=== PATIENT | male | born 1945 | race African-American/Black ===

== ENCOUNTER 2021-06-30 16:02 | Inpatient (IN) | payer OTHER ==
[2021-06-30] MEDS ORDERED: LACTATED RINGERS SOLUTION 1000 ML INFUS.BAG IV ONE ×2 (17:00→18:05)
[2021-06-30 17:18] LABS: VENOUS BASE EXCESS 1.9 mmol/L (-2-2); VENOUS PH 7.343 (7.310-7.410)
[2021-06-30 17:21] LABS: BASO % 0.2 % (0-2.0); EOS % 0.2 % (0-4.5); HEMATOCRIT 37.5 % (35.4-49); LYMPH % 24.5 % (8-40); MCH 28.4 pg (25.7-33.7); MCHC 32.1 g/dl (32.0-35.9); MEAN CELL VOLUME 88.3 fl (80-96); MEAN PLT VOLUME 8.7 fl (7.5-11.1); MONO % 6.8 % (3.8-10.2); NEUT % 68.3 % (42.8-82.8); PLATELET COUNT 235 10^3/uL (134-434); RBC 4.24 M/mm3 (4.00-5.60); RDW 12.3 % (11.9-15.9); WHITE BLOOD COUNT 3.3 K/mm3 (4.0-10.0)
[2021-06-30 17:49] LABS: CHLORIDE 90 mmol/L (98-107); SODIUM 127 mmol/L (136-145)
[2021-06-30 17:52] LABS: CALCIUM 9.5 mg/dL (8.5-10.1)
[2021-06-30 17:53] LABS: ALBUMIN 3.7 g/dl (3.4-5.0); ANION GAP 9 MMOL/L (8-16); BLOOD UREA NITROGEN 12.2 mg/dL (7-18); CO2 28 mmol/L (21-32); MAGNESIUM 2.1 mg/dL (1.8-2.4)
[2021-06-30 17:56] LABS: CREATININE 1.4 mg/dL (0.55-1.3); PHOSPHOROUS 4.1 mg/dL (2.5-4.9); SGOT/AST 15 U/L (15-37); SGPT/ALT 26 U/L (13-61)
[2021-06-30 17:57] LABS: BILIRUBIN,TOTAL 0.6 mg/dL (0.2-1)
[2021-06-30 17:58] LABS: TOT PROT 7.8 g/dl (6.4-8.2)
[2021-06-30 17:59] LABS: ALK PHOS 186 U/L (45-117); GLUCOSE,RANDOM 799 mg/dL (74-106)
[2021-06-30] MEDS ORDERED: INSULIN REGULAR HUMAN 100 UNITS/ML *VIAL IVPUSH ONE (18:04)
[2021-06-30 18:17] LABS: EPI CELLS 5 /uL (0-25.1); HYALINE CASTS 1 /uL (0-3.1); PH,URINE 5.5 (5.0-8.0); URINE APPEARANCE CLEAR; URINE BACTERIA 5 /uL (0-1359); URINE BILIRUBIN NEGATIVE (NEGATIVE); URINE COLOR YELLOW; URINE GLUCOSE (UA) 3+ (NEGATIVE); URINE KETONE 1+ (NEGATIVE); URINE LEUK ESTERASE NEGATIVE (NEGATIVE); URINE NITRITE NEGATIVE (NEGATIVE); URINE PROTEIN 3+ (NEGATIVE); URINE RBC 52 /uL (0-23.9); URINE UROBILINOGEN 0.2 mg/dL (0.2-1.0); URINE WBC 4 /uL (0-25.8)
[2021-06-30 21:12] LABS: CHLORIDE 97 mmol/L (98-107); SODIUM 135 mmol/L (136-145)
[2021-06-30 21:13] LABS: CALCIUM 9.7 mg/dL (8.5-10.1)
[2021-06-30 21:14] LABS: ANION GAP 7 MMOL/L (8-16); BLOOD UREA NITROGEN 11.1 mg/dL (7-18); CO2 30 mmol/L (21-32)
[2021-06-30 21:17] LABS: CREATININE 1.3 mg/dL (0.55-1.3); GLUCOSE,RANDOM 472 mg/dL (74-106)
[2021-06-30] MEDS ORDERED: HEPARIN NA (PORCINE) 5,000 UNITS/ML 1ML VIAL SQ ONE (22:35)
[2021-06-30] MEDS ORDERED: INSULIN (NOVOLOG) ASPART 100 UNITS/ML 10ML VIAL SQ ONE (22:39)
[2021-06-30] MEDS ORDERED: POTASSIUM CHLORIDE 20 MEQ PREMIX IVPB 100 ML IVPB ONE (22:40)
[2021-06-30] MEDS ORDERED: HEPARIN NA (PORCINE) 5,000 UNITS/ML 1ML VIAL ONE (23:17)
[2021-06-30] MEDS ORDERED: KCL 10 MEQ IVPB 10 MEQ/100 ML INFUS.BAG IVPB ONE (23:21)
[2021-06-30] MEDS: POTASSIUM CHLORIDE 10 MEQ PREMIX IVPB (POTASSIUM RIDER) IVPB SCH (23:51)
[2021-06-30] MEDS: LACTATED RINGERS SOLUTION 1,000 ML IV SCH (23:51)
[2021-07-01] MEDS ORDERED: KCL 10 MEQ IVPB 10 MEQ/100 ML INFUS.BAG IVPB ONE (00:47)
[2021-07-01] MEDS: POTASSIUM CHLORIDE 10 MEQ PREMIX IVPB (POTASSIUM RIDER) IVPB SCH (00:56)
[2021-07-01] MEDS: LACTATED RINGERS SOLUTION 1,000 ML IV SCH (06:30)
[2021-07-01] MEDS ORDERED: FLU VACC QS2021-22(6MOS UP)/PF 60 MCG/0.5 ML SYRINGE IM ONE (09:00)
[2021-07-01] MEDS ORDERED: PNEUMOC 13-VAL CONJ-DIP CRM/PF 0.5 ML DISP.SYRIN IM ONE (09:00)
[2021-07-01 10:17] LABS: BASO % 0.3 % (0-2.0); EOS % 0.4 % (0-4.5); HEMATOCRIT 39.7 % (35.4-49); HEMOGLOBIN 12.8 GM/dL (11.7-16.9); LYMPH % 33.7 % (8-40); MCH 28.3 pg (25.7-33.7); MCHC 32.2 g/dl (32.0-35.9); MEAN CELL VOLUME 87.9 fl (80-96); MEAN PLT VOLUME 8.4 fl (7.5-11.1); MONO % 9.3 % (3.8-10.2); NEUT % 56.3 % (42.8-82.8); PLATELET COUNT 235 10^3/uL (134-434); RBC 4.51 M/mm3 (4.00-5.60); RDW 12.3 % (11.9-15.9); WHITE BLOOD COUNT 3.6 K/mm3 (4.0-10.0)
[2021-07-01 10:57] LABS: ALBUMIN 3.3 g/dl (3.4-5.0); BLOOD UREA NITROGEN 9.2 mg/dL (7-18); MAGNESIUM 1.8 mg/dL (1.8-2.4)
[2021-07-01 10:59] LABS: CREATININE 0.9 mg/dL (0.55-1.3); PHOSPHOROUS 3.5 mg/dL (2.5-4.9)
[2021-07-01 11:00] LABS: BILIRUBIN,TOTAL 0.6 mg/dL (0.2-1); TOT PROT 6.8 g/dl (6.4-8.2)
[2021-07-01] MEDS: POLYETHYLENE GLYCOL (HEALTHYLAX) 3350 17 GM PACKET PO SCH (12:23)
[2021-07-01] MEDS: INSULIN (LEVEMIR) 100 UNITS/ML UNITS SQ SCH ×2 (12:23→22:03)
[2021-07-01] MEDS: Insulin (LOG) Aspart 100 UNITS/ML VIAL SQ SCH ×2 (12:27→17:52)
[2021-07-01 16:08] VITALS: BMI 26.9
[2021-07-01] MEDS: ASPIRIN COATED 81 MG TABLET.EC PO SCH (16:27)
[2021-07-01] MEDS: amLODIPine BESYLATE 10 MG TABLET (FP) PO SCH (17:40)
[2021-07-01] MEDS: ATORVASTATIN CA 20 MG TABLET (FP) PO SCH (22:04)
[2021-07-01] MEDS: LISINOPRIL 10 MG TABLET PO SCH (22:04)
[2021-07-02] MEDS: INSULIN (LEVEMIR) 100 UNITS/ML UNITS SQ SCH ×2 (06:17→21:42)
[2021-07-02] MEDS: Insulin (LOG) Aspart 100 UNITS/ML VIAL SQ SCH ×4 (06:17→16:53)
[2021-07-02] MEDS ORDERED: INSULIN (LEVEMIR) 100 UNITS/ML UNITS SQ ONE (07:56)
[2021-07-02] MEDS ORDERED: INSULIN SLIDING SCALE (NOVOLOG) 1 VIAL SQ ONE (08:22)
[2021-07-02] MEDS: ASPIRIN COATED 81 MG TABLET.EC PO SCH (10:03)
[2021-07-02] MEDS: ENOXAPARIN NA (PORCINE) 40 MG/0.4 ML DISP.SYRIN SQ SCH (10:03)
[2021-07-02] MEDS: POLYETHYLENE GLYCOL (HEALTHYLAX) 3350 17 GM PACKET PO SCH ×2 (10:03→21:45)
[2021-07-02] MEDS: BICALUTAMIDE 50 MG TABLET (FP) PO SCH (10:03)
[2021-07-02] MEDS: TAMSULOSIN HCL 0.4 MG CAP PO SCH (10:03)
[2021-07-02] MEDS: amLODIPine BESYLATE 10 MG TABLET (FP) PO SCH (10:03)
[2021-07-02] MEDS: INSULIN SLIDING SCALE (NOVOLOG) 1 VIAL SQ SCH ×3 (11:50→21:41)
[2021-07-02 13:40] LABS: HEMATOCRIT 37.6 % (35.4-49); HEMOGLOBIN 11.7 GM/dL (11.7-16.9); MCH 27.4 pg (25.7-33.7); MCHC 31.2 g/dl (32.0-35.9); PLATELET COUNT 249 10^3/uL (134-434); RBC 4.27 M/mm3 (4.00-5.60); RDW 12.2 % (11.9-15.9)
[2021-07-02 14:05] LABS: CALCIUM 8.9 mg/dL (8.5-10.1)
[2021-07-02 14:06] LABS: BLOOD UREA NITROGEN 10.7 mg/dL (7-18); MAGNESIUM 1.9 mg/dL (1.8-2.4)
[2021-07-02 14:09] LABS: PHOSPHOROUS 3.9 mg/dL (2.5-4.9)
[2021-07-02] MEDS: SENNOSIDES 8.6MG TABLET (FP) PO SCH ×2 (14:21→21:45)
[2021-07-02] MEDS: ATORVASTATIN CA 20 MG TABLET (FP) PO SCH (21:46)
[2021-07-02] MEDS: LISINOPRIL 10 MG TABLET PO SCH (21:46)
[2021-07-03] MEDS: INSULIN SLIDING SCALE (NOVOLOG) 1 VIAL SQ SCH ×4 (06:29→21:18)
[2021-07-03] MEDS: Insulin (LOG) Aspart 100 UNITS/ML VIAL SQ SCH (06:30)
[2021-07-03] MEDS: INSULIN (LEVEMIR) 100 UNITS/ML UNITS SQ SCH (06:31)
[2021-07-03 10:49] LABS: HEMATOCRIT 34.7 % (35.4-49); HEMOGLOBIN 11.2 GM/dL (11.7-16.9); MCH 28.4 pg (25.7-33.7); MCHC 32.3 g/dl (32.0-35.9); MEAN CELL VOLUME 87.9 fl (80-96); MEAN PLT VOLUME 8.3 fl (7.5-11.1); PLATELET COUNT 222 10^3/uL (134-434); RBC 3.95 M/mm3 (4.00-5.60); RDW 12.3 % (11.9-15.9); WHITE BLOOD COUNT 2.8 K/mm3 (4.0-10.0)
[2021-07-03] MEDS ORDERED: Insulin (LOG) Aspart 100 UNITS/ML VIAL SQ SCH (11:00)
[2021-07-03 11:09] LABS: CALCIUM 8.9 mg/dL (8.5-10.1)
[2021-07-03 11:10] LABS: BLOOD UREA NITROGEN 14.4 mg/dL (7-18)
[2021-07-03 11:13] LABS: PHOSPHOROUS 3.6 mg/dL (2.5-4.9)
[2021-07-03] MEDS: TAMSULOSIN HCL 0.4 MG CAP PO SCH (11:43)
[2021-07-03] MEDS: amLODIPine BESYLATE 10 MG TABLET (FP) PO SCH (11:44)
[2021-07-03] MEDS: SENNOSIDES 8.6MG TABLET (FP) PO SCH ×2 (11:44→21:18)
[2021-07-03] MEDS: ASPIRIN COATED 81 MG TABLET.EC PO SCH (11:44)
[2021-07-03] MEDS: POLYETHYLENE GLYCOL (HEALTHYLAX) 3350 17 GM PACKET PO SCH ×2 (11:44→21:18)
[2021-07-03] MEDS: ENOXAPARIN NA (PORCINE) 40 MG/0.4 ML DISP.SYRIN SQ SCH (11:44)
[2021-07-03] MEDS: BICALUTAMIDE 50 MG TABLET (FP) PO SCH (11:45)
[2021-07-03] MEDS: metFORMIN HCL 500 MG TABLET (FP) PO SCH (17:36)
[2021-07-03] MEDS: glipiZIDE 5 MG TABLET (FP) PO SCH (17:36)
[2021-07-03] MEDS: LISINOPRIL 10 MG TABLET PO SCH (21:18)
[2021-07-03] MEDS: ATORVASTATIN CA 20 MG TABLET (FP) PO SCH (21:18)
[2021-07-03] MEDS ORDERED: INSULIN (LEVEMIR) 100 UNITS/ML UNITS SQ SCH (22:00)
[2021-07-04] MEDS: glipiZIDE 5 MG TABLET (FP) PO SCH ×2 (06:01→09:33)
[2021-07-04] MEDS: INSULIN SLIDING SCALE (NOVOLOG) 1 VIAL SQ SCH ×4 (06:24→21:19)
[2021-07-04] MEDS: INSULIN (LEVEMIR) 100 UNITS/ML UNITS SQ SCH (06:29)
[2021-07-04] MEDS: metFORMIN HCL 500 MG TABLET (FP) PO SCH ×2 (06:29→19:04)
[2021-07-04 10:16] LABS: HEMATOCRIT 35.1 % (35.4-49); HEMOGLOBIN 11.5 GM/dL (11.7-16.9); MCH 28.7 pg (25.7-33.7); MCHC 32.7 g/dl (32.0-35.9); MEAN CELL VOLUME 87.8 fl (80-96); MEAN PLT VOLUME 8.2 fl (7.5-11.1); PLATELET COUNT 242 10^3/uL (134-434); RDW 12.5 % (11.9-15.9); WHITE BLOOD COUNT 3.3 K/mm3 (4.0-10.0)
[2021-07-04 10:35] LABS: CALCIUM 9.6 mg/dL (8.5-10.1)
[2021-07-04 10:39] LABS: CREATININE 1.1 mg/dL (0.55-1.3)
[2021-07-04 10:40] LABS: PHOSPHOROUS 3.4 mg/dL (2.5-4.9)
[2021-07-04 11:44] LABS: HIV INTERPRETATION NEGATIVE (NEGATIVE)
[2021-07-04] MEDS: ENOXAPARIN NA (PORCINE) 40 MG/0.4 ML DISP.SYRIN SQ SCH (11:59)
[2021-07-04] MEDS: TAMSULOSIN HCL 0.4 MG CAP PO SCH (12:00)
[2021-07-04] MEDS: amLODIPine BESYLATE 10 MG TABLET (FP) PO SCH (12:00)
[2021-07-04] MEDS: ASPIRIN COATED 81 MG TABLET.EC PO SCH (12:00)
[2021-07-04] MEDS: BICALUTAMIDE 50 MG TABLET (FP) PO SCH (12:00)
[2021-07-04] MEDS: POLYETHYLENE GLYCOL (HEALTHYLAX) 3350 17 GM PACKET PO SCH ×2 (12:00→21:19)
[2021-07-04] MEDS: SENNOSIDES 8.6MG TABLET (FP) PO SCH ×2 (12:00→21:19)
[2021-07-04] MEDS: LISINOPRIL 10 MG TABLET PO SCH (21:19)
[2021-07-04] MEDS: ATORVASTATIN CA 20 MG TABLET (FP) PO SCH (21:19)
[2021-07-05] MEDS: metFORMIN HCL 500 MG TABLET (FP) PO SCH ×2 (06:41→17:11)
[2021-07-05] MEDS: INSULIN (LEVEMIR) 100 UNITS/ML UNITS SQ SCH (06:41)
[2021-07-05] MEDS: INSULIN SLIDING SCALE (NOVOLOG) 1 VIAL SQ SCH ×3 (06:41→17:11)
[2021-07-05] MEDS: SENNOSIDES 8.6MG TABLET (FP) PO SCH (09:06)
[2021-07-05] MEDS: ENOXAPARIN NA (PORCINE) 40 MG/0.4 ML DISP.SYRIN SQ SCH (09:06)
[2021-07-05] MEDS: ASPIRIN COATED 81 MG TABLET.EC PO SCH (09:06)
[2021-07-05] MEDS: POLYETHYLENE GLYCOL (HEALTHYLAX) 3350 17 GM PACKET PO SCH (09:06)
[2021-07-05] MEDS: TAMSULOSIN HCL 0.4 MG CAP PO SCH (09:06)
[2021-07-05] MEDS: BICALUTAMIDE 50 MG TABLET (FP) PO SCH (09:06)
[2021-07-05] MEDS: amLODIPine BESYLATE 10 MG TABLET (FP) PO SCH (09:06)
[2021-07-05 09:40] LABS: HEMATOCRIT 33.7 % (35.4-49); HEMOGLOBIN 11.1 GM/dL (11.7-16.9); MCH 28.9 pg (25.7-33.7); MCHC 32.9 g/dl (32.0-35.9); MEAN CELL VOLUME 87.9 fl (80-96); MEAN PLT VOLUME 8.1 fl (7.5-11.1); PLATELET COUNT 255 10^3/uL (134-434); RBC 3.83 M/mm3 (4.00-5.60); RDW 12.6 % (11.9-15.9)
[2021-07-05 09:59] LABS: MAGNESIUM 1.9 mg/dL (1.8-2.4)
[2021-07-05 10:01] LABS: CREATININE 1.1 mg/dL (0.55-1.3); PHOSPHOROUS 3.2 mg/dL (2.5-4.9)
[2021-07-05 18:21] VITALS: BP 128/85; PULSE 79; TEMP 97.8
== END 2021-07-05 18:10 | disposition home health service (06) | DRG 638 ==
LOC: EDBD → JER 16:02 → JERBED 19:19 → J5S 07-01 03:01
PROVIDERS: ADMIT Internal Medicine; ATTEND Internal Medicine
DX: E11.00 Type 2 diabetes mellitus with hyperosmolarity without nonketotic hyperglycemic-hyperosmolar coma (NKHHC) (principal); E87.1 Hypo-osmolality and hyponatremia; N17.9 Acute kidney failure, unspecified; E11.65 Type 2 diabetes mellitus with hyperglycemia; E11.21 Type 2 diabetes mellitus with diabetic nephropathy; I10 Essential (primary) hypertension; C61 Malignant neoplasm of prostate; R14.0 Abdominal distension (gaseous); R80.9 Proteinuria, unspecified; K59.00 Constipation, unspecified
CPT/HCPCS: 36415; 71045-TC-FY; 74018-TC-FY; 76775-TC; 80048; 80053; 80061; 81003; 82010; 82340; 82436; 82570; 82803; 82962; 83036; 83735; 84100; 84133; 84300; 84443; 85025; 85027; 87086; 87389; 87522; 93005; 93010; 97116-GP; 97162-GP; 99285-25; C9803; J1644; U0003; U0005

== ENCOUNTER 2021-12-22 12:33 | Emergency (ER) | payer OTHER ==
[2021-12-22 12:40] VITALS: TEMP 98; BMI 25.3
[2021-12-22] MEDS ORDERED: ACETAMINOPHEN 1000 MG/100 ML BAG IVPB ONE (14:03)
[2021-12-22] MEDS ORDERED: ACETAMINOPHEN 500 MG TABLET (FP) PO ONE (14:50)
[2021-12-22] MEDS ORDERED: ACETAMINOPHEN 500 MG TABLET (FP) ONE (15:00)
[2021-12-22] MEDS ORDERED: SODIUM CHLORIDE 0.9% 500 ML INFUS.BAG IV ONE (15:30)
[2021-12-22 15:35] LABS: BASO % 0.7 % (0-2.0); EOS % 0.5 % (0-4.5); HEMATOCRIT 34.2 % (35.4-49); HEMOGLOBIN 10.8 GM/dL (11.7-16.9); LYMPH % 17.7 % (8-40); MCH 29.6 pg (25.7-33.7); MCHC 31.7 g/dl (32.0-35.9); MEAN CELL VOLUME 93.3 fl (80-96); MEAN PLT VOLUME 7.3 fl (7.5-11.1); MONO % 7.5 % (3.8-10.2); NEUT % 73.6 % (42.8-82.8); PLATELET COUNT 321 10^3/uL (134-434); RBC 3.66 M/mm3 (4.00-5.60); RDW 13.6 % (11.9-15.9); WHITE BLOOD COUNT 5.2 K/mm3 (4.0-10.0)
[2021-12-22 15:54] LABS: ALBUMIN 3.7 g/dl (3.4-5.0); BLOOD UREA NITROGEN 20.6 mg/dL (7-18); CALCIUM 9.3 mg/dL (8.5-10.1)
[2021-12-22 15:58] LABS: CREATININE 1.1 mg/dL (0.55-1.3)
[2021-12-22 16:00] LABS: BILIRUBIN,TOTAL 0.2 mg/dL (0.2-1)
[2021-12-22 17:15] LABS: EPI CELLS 7 /uL (0-25.1); HYALINE CASTS 1 /uL (0-3.1); PH,URINE 6.5 (5.0-8.0); URINE APPEARANCE CLEAR; URINE BACTERIA 32 /uL (0-1359); URINE BILIRUBIN NEGATIVE (NEGATIVE); URINE COLOR YELLOW; URINE GLUCOSE (UA) NEGATIVE (NEGATIVE); URINE KETONE NEGATIVE (NEGATIVE); URINE LEUK ESTERASE NEGATIVE (NEGATIVE); URINE NITRITE NEGATIVE (NEGATIVE); URINE PROTEIN 4+ (NEGATIVE); URINE RBC 76 /uL (0-23.9); URINE UROBILINOGEN 0.2 mg/dL (0.2-1.0); URINE WBC 6 /uL (0-25.8)
[2021-12-22 17:36] VITALS: BP 118/75; PULSE 86; RESP 16
== END 2021-12-22 17:52 | disposition home or self-care (01) ==
LOC: JER 12:33
PROC: 3E033NZ Introduction of Analgesics, Hypnotics, Sedatives into Peripheral Vein, Percutaneous Approach (ICD-10-PCS; principal; 2021-12-22)
DX: R30.0 Dysuria (principal)
CPT/HCPCS: 36415; 80053; 81003; 85025; 87086; 99284-25

== ENCOUNTER 2022-04-14 13:16 | Emergency (ER) | payer OTHER ==
[2022-04-14 13:39] VITALS: RESP 18; TEMP 98.6; BMI 25.0
[2022-04-14] MEDS ORDERED: SODIUM CHLORIDE 0.9% 500 ML INFUS.BAG IV ONE ×2 (15:12→17:14)
[2022-04-14 16:43] LABS: BASO % 0.5 % (0-2.0); EOS % 0.8 % (0-4.5); HEMATOCRIT 35.1 % (35.4-49); HEMOGLOBIN 11.4 GM/dL (11.7-16.9); LYMPH % 33.6 % (8-40); MCH 27.6 pg (25.7-33.7); MCHC 32.4 g/dl (32.0-35.9); MEAN CELL VOLUME 85.4 fl (80-96); MEAN PLT VOLUME 8.1 fl (7.5-11.1); MONO % 9.9 % (3.8-10.2); NEUT % 55.2 % (42.8-82.8); PLATELET COUNT 293 10^3/uL (134-434); RBC 4.11 M/mm3 (4.00-5.60); RDW 13.9 % (11.9-15.9); WHITE BLOOD COUNT 5.2 K/mm3 (4.0-10.0)
[2022-04-14 16:57] LABS: CHLORIDE 98 mmol/L (98-107); SODIUM 135 mmol/L (136-145); VENOUS BASE EXCESS 4.7 mmol/L (-2-2); VENOUS O2 SATURATION 45.1 % (70-80); VENOUS PCO2 57.5 mmHg (38-52); VENOUS PH 7.358 (7.310-7.410)
[2022-04-14 16:59] LABS: BLOOD UREA NITROGEN 10.8 mg/dL (7-18); CALCIUM 9.5 mg/dL (8.5-10.1)
[2022-04-14 17:00] LABS: ALBUMIN 3.6 g/dl (3.4-5.0); CO2 30 mmol/L (21-32); GLUCOSE,RANDOM 390 mg/dL (74-106); MAGNESIUM 2.2 mg/dL (1.8-2.4)
[2022-04-14 17:02] LABS: SGPT/ALT 27 U/L (13-61)
[2022-04-14 17:03] LABS: CREATININE 1.2 mg/dL (0.55-1.3); PHOSPHOROUS 3.3 mg/dL (2.5-4.9); SGOT/AST 50 U/L (15-37)
[2022-04-14 17:04] LABS: BILIRUBIN,TOTAL 0.4 mg/dL (0.2-1); TOT PROT 8.5 g/dl (6.4-8.2)
[2022-04-14 17:05] LABS: ALK PHOS 202 U/L (45-117)
[2022-04-14 17:13] LABS: ANION GAP 7 MMOL/L (8-16)
[2022-04-14 18:46] VITALS: BP 216/117; PULSE 67
[2022-04-14] MEDS ORDERED: LISINOPRIL 10 MG TABLET PO ONE (18:46)
[2022-04-14] MEDS ORDERED: LISINOPRIL 10 MG TABLET ONE (18:49)
== END 2022-04-14 18:59 | disposition home or self-care (01) ==
LOC: JER 13:16
DX: E11.65 Type 2 diabetes mellitus with hyperglycemia (principal)
CPT/HCPCS: 0241U-QW; 36415; 80053; 82010; 82803; 82962; 83735; 84100; 85025; 99284-25

== ENCOUNTER 2022-05-04 00:45 | Inpatient (IN) | payer OTHER ==
[2022-05-04 01:13] VITALS: BMI 23.3
[2022-05-04] MEDS ORDERED: ACETAMINOPHEN 1000 MG/100 ML BAG IVPB ONE (01:25)
[2022-05-04 01:53] LABS: BASO % 0.5 % (0-2.0); EOS % 0.3 % (0-4.5); HEMATOCRIT 36.3 % (35.4-49); HEMOGLOBIN 11.5 GM/dL (11.7-16.9); LYMPH % 13.2 % (8-40); MCH 26.8 pg (25.7-33.7); MCHC 31.8 g/dl (32.0-35.9); MEAN CELL VOLUME 84.4 fl (80-96); MEAN PLT VOLUME 8.2 fl (7.5-11.1); MONO % 8.3 % (3.8-10.2); NEUT % 77.7 % (42.8-82.8); PLATELET COUNT 254 10^3/uL (134-434); RDW 13.3 % (11.9-15.9); WHITE BLOOD COUNT 3.9 K/mm3 (4.0-10.0)
[2022-05-04 02:03] LABS: INR 1.12 (0.83-1.09); PROTHROMBIN TIME (PATIENT) 12.9 SEC (9.7-13.0)
[2022-05-04 02:05] LABS: ACTIVATED PTT 21.8 SECONDS (25.2-36.5)
[2022-05-04 02:12] LABS: CHLORIDE 101 mmol/L (98-107); SODIUM 141 mmol/L (136-145)
[2022-05-04 02:14] LABS: ALBUMIN 3.7 g/dl (3.4-5.0); ANION GAP 9 MMOL/L (8-16); BLOOD UREA NITROGEN 22.2 mg/dL (7-18); CO2 30 mmol/L (21-32); GLUCOSE,RANDOM 339 mg/dL (74-106); MAGNESIUM 1.7 mg/dL (1.8-2.4)
[2022-05-04 02:17] LABS: CREATININE 1.3 mg/dL (0.55-1.3); SGOT/AST 21 U/L (15-37); SGPT/ALT 23 U/L (13-61)
[2022-05-04 02:19] LABS: BILIRUBIN,TOTAL 0.3 mg/dL (0.2-1); TOT PROT 8.2 g/dl (6.4-8.2)
[2022-05-04 02:20] LABS: ALK PHOS 186 U/L (45-117)
[2022-05-04 02:22] LABS: N-TERMINAL BNP 82.4 pg/ml (5-450)
[2022-05-04] MEDS ORDERED: MAGNESIUM SULF 50% (8.12 MEQ/2 ML-1 GM VIAL) IVPB ONE (02:22)
[2022-05-04] MEDS ORDERED: MAGNESIUM SULFATE IN WATER 2 GM/50 ML IVPB IVPB ONE (03:30)
[2022-05-04] MEDS ORDERED: INSULIN (NOVOLOG) ASPART 100 UNITS/ML 10ML VIAL SQ ONE (04:41)
[2022-05-04] MEDS ORDERED: INSULIN (LEVEMIR) 100 UNITS/ML UNITS SQ ONE (04:56)
[2022-05-04] MEDS ORDERED: ACETAMINOPHEN INJECTION 100 ML IVPB ONE (05:49)
[2022-05-04 06:51] LABS: COCAINE, UR NEGATIVE (NEGATIVE); METHADONE, UR NEGATIVE (NEGATIVE); OPIATES, URI NEGATIVE (NEGATIVE); PHENCYCLIDINE,URINE NEGATIVE (NEGATIVE); URINE AMPHETAMINES NEGATIVE (NEGATIVE); URINE BARBITURATES NEGATIVE (NEGATIVE); URINE BENZODIAZEPINES NEGATIVE (NEGATIVE)
[2022-05-04 07:27] LABS: URINE COLOR YELLOW
[2022-05-04 07:28] LABS: PH,URINE 5.5 (5.0-8.0); URINE APPEARANCE CLEAR; URINE BILIRUBIN NEGATIVE (NEGATIVE); URINE KETONE NEGATIVE (NEGATIVE); URINE LEUK ESTERASE NEGATIVE (NEGATIVE); URINE NITRITE NEGATIVE (NEGATIVE); URINE PROTEIN TRACE (NEGATIVE); URINE UROBILINOGEN 0.2 mg/dL (0.2-1.0)
[2022-05-04 08:10] LABS: HEMATOCRIT 34.4 % (35.4-49); HEMOGLOBIN 10.7 GM/dL (11.7-16.9); MCH 26.5 pg (25.7-33.7); MCHC 31.2 g/dl (32.0-35.9); MEAN CELL VOLUME 84.8 fl (80-96); MEAN PLT VOLUME 8.7 fl (7.5-11.1); PLATELET COUNT 243 10^3/uL (134-434); RBC 4.05 M/mm3 (4.00-5.60); RDW 13.5 % (11.9-15.9); WHITE BLOOD COUNT 3.8 K/mm3 (4.0-10.0)
[2022-05-04] MEDS ORDERED: ENOXAPARIN NA (PORCINE) 40 MG/0.4 ML DISP.SYRIN SQ ONE (09:56)
[2022-05-04] MEDS: SODIUM CHLORIDE 1,000 ML IV SCH (10:02)
[2022-05-04] MEDS: INSULIN SLIDING SCALE (NOVOLOG) 1 VIAL SQ SCH ×4 (10:03→21:43)
[2022-05-04] MEDS: INSULIN (LEVEMIR) 100 UNITS/ML UNITS SQ SCH ×3 (10:03→21:42)
[2022-05-04] MEDS: ENOXAPARIN NA (PORCINE) 40 MG/0.4 ML DISP.SYRIN SQ SCH (10:03)
[2022-05-04] MEDS ORDERED: MAGNESIUM OXIDE 400 MG TABLET (FP) PO ONE (15:48)
[2022-05-04] MEDS ORDERED: MAGNESIUM OXIDE 400 MG TABLET (FP) ONE (16:06)
[2022-05-04] MEDS: ATORVASTATIN CA 20 MG TABLET (FP) PO SCH (21:42)
[2022-05-04] MEDS: LISINOPRIL 10 MG TABLET PO SCH (21:42)
[2022-05-05] MEDS ORDERED: LABETALOL HCL 200 MG TABLET (FP) PO ONE (05:24)
[2022-05-05] MEDS: INSULIN SLIDING SCALE (NOVOLOG) 1 VIAL SQ SCH ×4 (06:11→23:07)
[2022-05-05] MEDS: SODIUM CHLORIDE 1,000 ML IV SCH ×2 (06:15→15:05)
[2022-05-05] MEDS ORDERED: amLODIPine BESYLATE 5 MG TABLET (FP) PO ONE (07:39)
[2022-05-05] MEDS: ENOXAPARIN NA (PORCINE) 40 MG/0.4 ML DISP.SYRIN SQ SCH (09:54)
[2022-05-05] MEDS: LISINOPRIL 10 MG TABLET PO SCH (09:55)
[2022-05-05] MEDS: INSULIN (LEVEMIR) 100 UNITS/ML UNITS SQ SCH ×2 (09:55→23:06)
[2022-05-05] MEDS ORDERED: LISINOPRIL 10 MG TABLET PO SCH (10:00)
[2022-05-05 15:06] LABS: PHOSPHOROUS 3.2 mg/dL (2.5-4.9)
[2022-05-05 15:08] LABS: ALBUMIN 3.3 g/dl (3.4-5.0); BLOOD UREA NITROGEN 12.6 mg/dL (7-18); MAGNESIUM 1.8 mg/dL (1.8-2.4)
[2022-05-05 15:10] LABS: PHOSPHOROUS 3.2 mg/dL (2.5-4.9)
[2022-05-05 15:11] LABS: BILIRUBIN,TOTAL 0.4 mg/dL (0.2-1); CREATININE 0.9 mg/dL (0.55-1.3)
[2022-05-05 15:12] LABS: TOT PROT 7.4 g/dl (6.4-8.2)
[2022-05-05] MEDS: ATORVASTATIN CA 20 MG TABLET (FP) PO SCH (21:43)
[2022-05-06] MEDS: INSULIN SLIDING SCALE (NOVOLOG) 1 VIAL SQ SCH ×4 (06:49→22:27)
[2022-05-06] MEDS: INSULIN (LEVEMIR) 100 UNITS/ML UNITS SQ SCH ×3 (11:43→22:26)
[2022-05-06] MEDS: LISINOPRIL 10 MG TABLET PO SCH (11:44)
[2022-05-06] MEDS: ENOXAPARIN NA (PORCINE) 40 MG/0.4 ML DISP.SYRIN SQ SCH (11:44)
[2022-05-06] MEDS ORDERED: LISINOPRIL 10 MG PO SCH (14:30)
[2022-05-06] MEDS ORDERED: amLODIPine BESYLATE 5 MG TABLET (FP) PO ONE (15:03)
[2022-05-06] MEDS: TAMSULOSIN HCL 0.4 MG CAP PO SCH (15:03)
[2022-05-06] MEDS: INSULIN (NOVOLOG) ASPART 100 UNITS/ML 10ML VIAL SQ SCH (17:34)
[2022-05-06] MEDS: ATORVASTATIN CA 20 MG TABLET (FP) PO SCH (21:42)
[2022-05-06] MEDS ORDERED: ATORVASTATIN CA 20 MG PO SCH (22:00)
[2022-05-07] MEDS: INSULIN (LEVEMIR) 100 UNITS/ML UNITS SQ SCH ×2 (06:25→22:25)
[2022-05-07] MEDS: INSULIN (NOVOLOG) ASPART 100 UNITS/ML 10ML VIAL SQ SCH ×3 (06:26→17:20)
[2022-05-07] MEDS: INSULIN SLIDING SCALE (NOVOLOG) 1 VIAL SQ SCH ×4 (06:27→22:27)
[2022-05-07 08:24] LABS: ALBUMIN 3.2 g/dl (3.4-5.0); BLOOD UREA NITROGEN 11.7 mg/dL (7-18); CALCIUM 8.9 mg/dL (8.5-10.1)
[2022-05-07 08:25] LABS: HEMOGLOBIN 11.4 GM/dL (11.7-16.9); MCH 26.8 pg (25.7-33.7); MCHC 31.7 g/dl (32.0-35.9); MEAN CELL VOLUME 84.5 fl (80-96); MEAN PLT VOLUME 8.2 fl (7.5-11.1); PLATELET COUNT 225 10^3/uL (134-434); RBC 4.26 M/mm3 (4.00-5.60); RDW 13.5 % (11.9-15.9); WHITE BLOOD COUNT 3.6 K/mm3 (4.0-10.0)
[2022-05-07 08:27] LABS: CREATININE 0.9 mg/dL (0.55-1.3)
[2022-05-07 08:29] LABS: BILIRUBIN,TOTAL 0.6 mg/dL (0.2-1); TOT PROT 7.5 g/dl (6.4-8.2)
[2022-05-07] MEDS: TAMSULOSIN HCL 0.4 MG CAP PO SCH (09:35)
[2022-05-07] MEDS: ENOXAPARIN NA (PORCINE) 40 MG/0.4 ML DISP.SYRIN SQ SCH (09:35)
[2022-05-07] MEDS: LISINOPRIL 10 MG TABLET PO SCH (09:35)
[2022-05-07] MEDS: ATORVASTATIN CA 20 MG TABLET (FP) PO SCH (22:26)
[2022-05-08] MEDS: INSULIN (LEVEMIR) 100 UNITS/ML UNITS SQ SCH ×2 (06:39→21:23)
[2022-05-08] MEDS: INSULIN SLIDING SCALE (NOVOLOG) 1 VIAL SQ SCH ×4 (06:40→21:23)
[2022-05-08] MEDS: INSULIN (NOVOLOG) ASPART 100 UNITS/ML 10ML VIAL SQ SCH ×3 (06:40→17:17)
[2022-05-08 08:11] LABS: BASO % 0.4 % (0-2.0); EOS % 1.2 % (0-4.5); HEMATOCRIT 37.6 % (35.4-49); HEMOGLOBIN 11.7 GM/dL (11.7-16.9); LYMPH % 19.3 % (8-40); MCH 26.7 pg (25.7-33.7); MCHC 31.2 g/dl (32.0-35.9); MEAN CELL VOLUME 85.6 fl (80-96); MEAN PLT VOLUME 7.9 fl (7.5-11.1); MONO % 12.3 % (3.8-10.2); NEUT % 66.8 % (42.8-82.8); PLATELET COUNT 250 10^3/uL (134-434); RBC 4.39 M/mm3 (4.00-5.60); RDW 13.4 % (11.9-15.9); WHITE BLOOD COUNT 3.3 K/mm3 (4.0-10.0)
[2022-05-08 08:37] LABS: BLOOD UREA NITROGEN 14.9 mg/dL (7-18); CALCIUM 9.3 mg/dL (8.5-10.1)
[2022-05-08] MEDS: LISINOPRIL 10 MG TABLET PO SCH (09:55)
[2022-05-08] MEDS: TAMSULOSIN HCL 0.4 MG CAP PO SCH (09:55)
[2022-05-08] MEDS: amLODIPine BESYLATE 5 MG TABLET (FP) PO SCH (09:55)
[2022-05-08] MEDS: ENOXAPARIN NA (PORCINE) 40 MG/0.4 ML DISP.SYRIN SQ SCH (09:55)
[2022-05-08] MEDS: ATORVASTATIN CA 20 MG TABLET (FP) PO SCH (21:23)
[2022-05-09] MEDS: INSULIN (NOVOLOG) ASPART 100 UNITS/ML 10ML VIAL SQ SCH ×4 (06:07→16:03)
[2022-05-09] MEDS: INSULIN SLIDING SCALE (NOVOLOG) 1 VIAL SQ SCH ×4 (06:07→21:41)
[2022-05-09] MEDS: INSULIN (LEVEMIR) 100 UNITS/ML UNITS SQ SCH ×2 (06:07→21:41)
[2022-05-09 07:24] LABS: HEMATOCRIT 34.3 % (35.4-49); HEMOGLOBIN 10.8 GM/dL (11.7-16.9); MCH 26.7 pg (25.7-33.7); MCHC 31.3 g/dl (32.0-35.9); MEAN CELL VOLUME 85.2 fl (80-96); MEAN PLT VOLUME 7.7 fl (7.5-11.1); PLATELET COUNT 230 10^3/uL (134-434); RBC 4.03 M/mm3 (4.00-5.60); RDW 13.7 % (11.9-15.9); WHITE BLOOD COUNT 3.6 K/mm3 (4.0-10.0)
[2022-05-09 07:46] LABS: BLOOD UREA NITROGEN 17.9 mg/dL (7-18)
[2022-05-09 07:49] LABS: CREATININE 0.9 mg/dL (0.55-1.3); PHOSPHOROUS 3.7 mg/dL (2.5-4.9)
[2022-05-09 07:50] LABS: BILIRUBIN,TOTAL 0.7 mg/dL (0.2-1); TOT PROT 7.1 g/dl (6.4-8.2)
[2022-05-09] MEDS: ENOXAPARIN NA (PORCINE) 40 MG/0.4 ML DISP.SYRIN SQ SCH (09:37)
[2022-05-09] MEDS: LISINOPRIL 10 MG TABLET PO SCH (09:37)
[2022-05-09] MEDS: TAMSULOSIN HCL 0.4 MG CAP PO SCH (09:37)
[2022-05-09] MEDS: amLODIPine BESYLATE 5 MG TABLET (FP) PO SCH (09:37)
[2022-05-09] MEDS: ATORVASTATIN CA 20 MG TABLET (FP) PO SCH (21:41)
[2022-05-10] MEDS: INSULIN (LEVEMIR) 100 UNITS/ML UNITS SQ SCH ×2 (06:34→22:07)
[2022-05-10] MEDS: INSULIN (NOVOLOG) ASPART 100 UNITS/ML 10ML VIAL SQ SCH ×3 (06:34→16:38)
[2022-05-10] MEDS: INSULIN SLIDING SCALE (NOVOLOG) 1 VIAL SQ SCH ×4 (06:34→22:07)
[2022-05-10] MEDS: ENOXAPARIN NA (PORCINE) 40 MG/0.4 ML DISP.SYRIN SQ SCH (09:18)
[2022-05-10] MEDS: LISINOPRIL 10 MG TABLET PO SCH (09:18)
[2022-05-10] MEDS: amLODIPine BESYLATE 5 MG TABLET (FP) PO SCH (09:18)
[2022-05-10] MEDS: TAMSULOSIN HCL 0.4 MG CAP PO SCH (09:18)
[2022-05-10 13:23] LABS: HEMATOCRIT 37.2 % (35.4-49); HEMOGLOBIN 11.6 GM/dL (11.7-16.9); MCH 26.6 pg (25.7-33.7); MEAN CELL VOLUME 85.7 fl (80-96); MEAN PLT VOLUME 8.2 fl (7.5-11.1); PLATELET COUNT 295 10^3/uL (134-434); RBC 4.34 M/mm3 (4.00-5.60); RDW 13.7 % (11.9-15.9); WHITE BLOOD COUNT 4.2 K/mm3 (4.0-10.0)
[2022-05-10] MEDS: ATORVASTATIN CA 20 MG TABLET (FP) PO SCH (22:03)
[2022-05-11] MEDS: INSULIN (LEVEMIR) 100 UNITS/ML UNITS SQ SCH ×2 (06:36→21:31)
[2022-05-11] MEDS: INSULIN (NOVOLOG) ASPART 100 UNITS/ML 10ML VIAL SQ SCH ×3 (06:36→17:15)
[2022-05-11] MEDS: INSULIN SLIDING SCALE (NOVOLOG) 1 VIAL SQ SCH ×4 (06:36→21:32)
[2022-05-11] MEDS: amLODIPine BESYLATE 5 MG TABLET (FP) PO SCH (09:43)
[2022-05-11] MEDS: LISINOPRIL 10 MG TABLET PO SCH (09:43)
[2022-05-11] MEDS: TAMSULOSIN HCL 0.4 MG CAP PO SCH (09:43)
[2022-05-11] MEDS ORDERED: LIDOCAINE 5% TOPICAL PATCH TP SCH (17:15)
[2022-05-11] MEDS: ATORVASTATIN CA 20 MG TABLET (FP) PO SCH (21:32)
[2022-05-11] MEDS: LIDOCAINE 5% TOPICAL PATCH TP SCH (21:32)
[2022-05-11] MEDS ORDERED: LIDOCAINE PATCH REMOVAL MC SCH (22:00)
[2022-05-12] MEDS: INSULIN SLIDING SCALE (NOVOLOG) 1 VIAL SQ SCH ×4 (06:00→22:00)
[2022-05-12] MEDS: INSULIN (NOVOLOG) ASPART 100 UNITS/ML 10ML VIAL SQ SCH ×3 (06:27→17:33)
[2022-05-12] MEDS: INSULIN (LEVEMIR) 100 UNITS/ML UNITS SQ SCH ×2 (06:27→21:59)
[2022-05-12] MEDS: amLODIPine BESYLATE 5 MG TABLET (FP) PO SCH (09:37)
[2022-05-12] MEDS: TAMSULOSIN HCL 0.4 MG CAP PO SCH (09:37)
[2022-05-12] MEDS: LISINOPRIL 10 MG TABLET PO SCH (09:37)
[2022-05-12] MEDS: LIDOCAINE PATCH REMOVAL MC SCH (09:39)
[2022-05-12] MEDS: LIDOCAINE 5% TOPICAL PATCH TP SCH (21:49)
[2022-05-12] MEDS: ATORVASTATIN CA 20 MG TABLET (FP) PO SCH (22:41)
[2022-05-13] MEDS: INSULIN (LEVEMIR) 100 UNITS/ML UNITS SQ SCH (06:29)
[2022-05-13] MEDS: INSULIN (NOVOLOG) ASPART 100 UNITS/ML 10ML VIAL SQ SCH ×3 (06:29→18:04)
[2022-05-13] MEDS: INSULIN SLIDING SCALE (NOVOLOG) 1 VIAL SQ SCH ×3 (06:30→18:05)
[2022-05-13] MEDS: TAMSULOSIN HCL 0.4 MG CAP PO SCH (09:43)
[2022-05-13] MEDS: amLODIPine BESYLATE 5 MG TABLET (FP) PO SCH (09:43)
[2022-05-13] MEDS: LISINOPRIL 10 MG TABLET PO SCH (09:43)
[2022-05-13 09:48] VITALS: RESP 18
[2022-05-13] MEDS: LIDOCAINE PATCH REMOVAL MC SCH (12:03)
[2022-05-13 14:38] VITALS: BP 142/86; PULSE 20; TEMP 97.9
[2022-05-13] MEDS ORDERED: INSULIN SLIDING SCALE (NOVOLOG) 1 VIAL SQ SCH (22:00)
[2022-05-13] MEDS ORDERED: INSULIN (LEVEMIR) 100 UNITS/ML UNITS SQ SCH (22:00)
[2022-05-13] MEDS ORDERED: ATORVASTATIN CA 20 MG TABLET (FP) PO SCH (22:00)
[2022-05-13] MEDS: LIDOCAINE 5% TOPICAL PATCH TP SCH (22:44)
[2022-05-14] MEDS ORDERED: sitaGLIPtin PHOSPHATE 50 MG TABLET PO SCH (07:00)
[2022-05-14] MEDS ORDERED: INSULIN (LEVEMIR) 100 UNITS/ML UNITS SQ SCH (07:00)
[2022-05-14] MEDS ORDERED: INSULIN (NOVOLOG) ASPART 100 UNITS/ML 10ML VIAL SQ SCH (07:00)
[2022-05-14] MEDS ORDERED: TAMSULOSIN HCL 0.4 MG CAP PO SCH (08:30)
[2022-05-14] MEDS ORDERED: amLODIPine BESYLATE 5 MG TABLET (FP) PO SCH (10:00)
[2022-05-14] MEDS ORDERED: LISINOPRIL 10 MG TABLET PO SCH (10:00)
== END 2022-05-13 23:30 | DRG 637 ==
LOC: JER 00:45 → INTOOBSV 02:01 → UNDOADMOB 02:01 → JERBED 02:01 → J4W 19:03 → OBSVTOIN 19:39 → J4W 05-12 16:09 → J5S 05-13 16:36
PROVIDERS: ADMIT Internal Medicine; ATTEND Internal Medicine
DX: E11.65 Type 2 diabetes mellitus with hyperglycemia (principal); G93.41 Metabolic encephalopathy; I10 Essential (primary) hypertension; E78.5 Hyperlipidemia, unspecified; C61 Malignant neoplasm of prostate; Z86.16 Personal history of COVID-19; M25.512 Pain in left shoulder; R55 Syncope and collapse; F03.90 Unspecified dementia, unspecified severity, without behavioral disturbance, psychotic disturbance, mood disturbance, and anxiety; Z79.4 Long term (current) use of insulin
CPT/HCPCS: 0241U-QW; 36415; 70450-TC; 70551-TC; 71045-TC-FY; 71260-TC; 72125-TC; 73030-TC-RT-FY; 74177-TC; 80048; 80053; 80307; 81003; 82962; 83036; 83735; 83880; 84100; 84484; 85025; 85027; 85610; 85730; 86850; 86900; 86901; 87040; 87086; 93005; 93010; 93306-TC; 93880-TC; 97116-GP; 97161-GP; 99285-25; G0378; Q9967

== ENCOUNTER 2022-10-31 12:01 | Emergency (ER) | payer OTHER ==
[2022-10-31 12:05] VITALS: BP 154/100; PULSE 87; RESP 18; TEMP 98.3; BMI 22.6
[2022-10-31] MEDS ORDERED: ACETAMINOPHEN 500 MG TABLET (FP) PO ONE (13:48)
[2022-10-31] MEDS ORDERED: ACETAMINOPHEN 500 MG TABLET (FP) ONE (13:59)
[2022-10-31 17:07] LABS: EPI CELLS 4 /uL (0-25.1); HYALINE CASTS 1 /uL (0-3.1); URINE APPEARANCE CLOUDY; URINE BACTERIA >9,000 /uL (0-1359); URINE BILIRUBIN NEGATIVE (NEGATIVE); URINE COLOR YELLOW; URINE GLUCOSE (UA) 3+ (NEGATIVE); URINE KETONE NEGATIVE (NEGATIVE); URINE LEUK ESTERASE 1+ (NEGATIVE); URINE NITRITE POSITIVE (NEGATIVE); URINE PROTEIN 1+ (NEGATIVE); URINE RBC 2494 /uL (0-23.9); URINE WBC 1927 /uL (0-25.8)
== END 2022-10-31 18:00 | disposition home or self-care (01) ==
LOC: JER 12:01
DX: T83.098A Other mechanical complication of other urinary catheter, initial encounter (principal); N39.0 Urinary tract infection, site not specified; N48.29 Other inflammatory disorders of penis; R10.30 Lower abdominal pain, unspecified
CPT/HCPCS: 81003; 87086; 99283-25

== ENCOUNTER 2022-11-06 20:13 | Inpatient (IN) | payer OTHER ==
[2022-11-06] MEDS ORDERED: ACETAMINOPHEN 1000 MG/100 ML BAG IVPB ONE (20:45)
[2022-11-06] MEDS ORDERED: SODIUM CHLORIDE 0.9% 500 ML INFUS.BAG IV ONE (20:45)
[2022-11-06] MEDS ORDERED: ACETAMINOPHEN INJECTION 100 ML IVPB ONE (20:57)
[2022-11-06 21:33] LABS: EPI CELLS 8 /uL (0-25.1); HYALINE CASTS 0 /uL (0-3.1); PH,URINE 5.5 (5.0-8.0); URINE APPEARANCE TURBID; URINE BACTERIA 1518 /uL (0-1359); URINE BILIRUBIN NEGATIVE (NEGATIVE); URINE COLOR ORANGE; URINE GLUCOSE (UA) 3+ (NEGATIVE); URINE KETONE NEGATIVE (NEGATIVE); URINE LEUK ESTERASE 2+ (NEGATIVE); URINE NITRITE NEGATIVE (NEGATIVE); URINE PROTEIN 2+ (NEGATIVE); URINE RBC 2785 /uL (0-23.9); URINE UROBILINOGEN 0.2 mg/dL (0.2-1.0); URINE WBC 3545 /uL (0-25.8)
[2022-11-06] MEDS ORDERED: PIPERACILLIN/TAZOB 3.375 GM 3.375 GM in DEXTROSE 5%-WATER - 50 ML IVPB ONE (21:59)
[2022-11-06] MEDS ORDERED: PIPERACILLIN/TAZOB 3.375 GM 3.375 GM/50 ML BAG IVPB ONE (22:03)
[2022-11-06 22:16] LABS: INR 0.97 (0.83-1.09); PROTHROMBIN TIME (PATIENT) 11.2 SEC (9.7-13.0)
[2022-11-06 22:17] LABS: BASO % 0.5 % (0-2.0); EOS % 0.3 % (0-4.5); HEMATOCRIT 39.1 % (35.4-49); LYMPH % 18.3 % (8-40); MCHC 30.7 g/dl (32.0-35.9); MEAN CELL VOLUME 84.5 fl (80-96); MEAN PLT VOLUME 8.3 fl (7.5-11.1); NEUT % 71.9 % (42.8-82.8); PLATELET COUNT 322 10^3/uL (134-434); RBC 4.62 M/mm3 (4.00-5.60); RDW 16.5 % (11.9-15.9); WHITE BLOOD COUNT 5.2 K/mm3 (4.0-10.0)
[2022-11-06 22:19] LABS: ACTIVATED PTT 29.9 SECONDS (25.2-36.5)
[2022-11-06 22:21] LABS: POTASSIUM 3.9 mmol/L (3.5-5.1)
[2022-11-06 22:23] LABS: CALCIUM 10.4 mg/dL (8.5-10.1)
[2022-11-06 22:24] LABS: ALBUMIN 3.6 g/dl (3.4-5.0); BLOOD UREA NITROGEN 16.4 mg/dL (7-18); MAGNESIUM 2.4 mg/dL (1.8-2.4)
[2022-11-06 22:28] LABS: BILIRUBIN,TOTAL 0.2 mg/dL (0.2-1); TOT PROT 8.3 g/dl (6.4-8.2)
[2022-11-06 22:32] LABS: N-TERMINAL BNP 234.3 pg/ml (5-450)
[2022-11-06] MEDS ORDERED: SODIUM CHLORIDE 1,000 ML IV SCH (23:30)
[2022-11-07] MEDS ORDERED: HEPARIN NA (PORCINE) 5,000 UNITS/ML 1ML VIAL ONE ×3 (01:31→13:26)
[2022-11-07] MEDS: INSULIN SLIDING SCALE (NOVOLOG) 1 VIAL SQ SCH ×4 (01:40→16:46)
[2022-11-07] MEDS: HEPARIN NA (PORCINE) 5,000 UNITS/ML 1ML VIAL SQ SCH ×4 (01:40→22:11)
[2022-11-07] MEDS ORDERED: TAMSULOSIN HCL 0.4 MG CAP ONE (08:43)
[2022-11-07] MEDS ORDERED: PIPERACILLIN/TAZOB 3.375 GM 3.375 GM/50 ML BAG IVPB ONE ×2 (08:43→17:20)
[2022-11-07] MEDS: TAMSULOSIN HCL 0.4 MG CAP PO SCH (08:50)
[2022-11-07] MEDS ORDERED: PIPERACILLIN/TAZOB 3.375 GM 3.375 GM in DEXTROSE 5%-WATER - 50 ML IVPB SCH (10:00)
[2022-11-07 12:25] LABS: BASO % 1.1 % (0-2.0); EOS % 0.1 % (0-4.5); HEMATOCRIT 34.3 % (35.4-49); HEMOGLOBIN 10.9 GM/dL (11.7-16.9); LYMPH % 30.3 % (8-40); MCH 26.4 pg (25.7-33.7); MCHC 31.7 g/dl (32.0-35.9); MEAN CELL VOLUME 83.2 fl (80-96); MEAN PLT VOLUME 8.7 fl (7.5-11.1); NEUT % 57.5 % (42.8-82.8); PLATELET COUNT 314 10^3/uL (134-434); RBC 4.12 M/mm3 (4.00-5.60); RDW 17.2 % (11.9-15.9); WHITE BLOOD COUNT 4.9 K/mm3 (4.0-10.0)
[2022-11-07 12:54] LABS: CHLORIDE 102 mmol/L (98-107); SODIUM 135 mmol/L (136-145)
[2022-11-07 12:57] LABS: CO2 26 mmol/L (21-32); GLUCOSE,RANDOM 204 mg/dL (74-106)
[2022-11-07 12:59] LABS: PHOSPHOROUS 2.8 mg/dL (2.5-4.9); SGOT/AST 47 U/L (15-37); SGPT/ALT 20 U/L (13-61)
[2022-11-07 13:00] LABS: CHOLESTEROL 118 mg/dL (50-200); CREATININE 1.1 mg/dL (0.55-1.3)
[2022-11-07 13:01] LABS: BILIRUBIN,TOTAL 0.5 mg/dL (0.2-1); LDL CHOLESTEROL (ONLY SJRH) 52 mg/dL (5-100); TOT PROT 7.5 g/dl (6.4-8.2)
[2022-11-07 13:02] LABS: HDL CHOLESTEROL 54 mg/dL (40-60)
[2022-11-07 13:08] LABS: ALK PHOS 160 U/L (45-117); ANION GAP 7 MMOL/L (8-16); POTASSIUM 6.1 mmol/L (3.5-5.1)
[2022-11-07] MEDS: PIPERACILLIN/TAZOB 3.375 GM 3.375 GM in DEXTROSE 5%-WATER - 50 ML IVPB SCH (17:20)
[2022-11-07] MEDS: SODIUM CHLORIDE 1,000 ML IV SCH (18:21)
[2022-11-07] MEDS: ATORVASTATIN CA 20 MG TABLET (FP) PO SCH (22:11)
[2022-11-07] MEDS: DOCUSATE SODIUM 100 MG CAPSULE (FP) PO SCH (22:11)
[2022-11-07 23:06] VITALS: BMI 25.8
[2022-11-08] MEDS: PIPERACILLIN/TAZOB 3.375 GM 3.375 GM in DEXTROSE 5%-WATER - 50 ML IVPB SCH ×3 (02:12→18:08)
[2022-11-08] MEDS ORDERED: INSULIN (NOVOLOG) ASPART 100 UNITS/ML 10ML VIAL ONE ×2 (06:12→11:31)
[2022-11-08] MEDS: HEPARIN NA (PORCINE) 5,000 UNITS/ML 1ML VIAL SQ SCH ×3 (06:15→21:53)
[2022-11-08] MEDS: INSULIN SLIDING SCALE (NOVOLOG) 1 VIAL SQ SCH ×3 (06:15→16:45)
[2022-11-08 08:16] LABS: BASO % 0.5 % (0-2.0); EOS % 1.3 % (0-4.5); HEMATOCRIT 34.2 % (35.4-49); HEMOGLOBIN 10.6 GM/dL (11.7-16.9); LYMPH % 32.7 % (8-40); MCH 26.1 pg (25.7-33.7); MCHC 30.9 g/dl (32.0-35.9); MEAN CELL VOLUME 84.4 fl (80-96); MEAN PLT VOLUME 8.8 fl (7.5-11.1); MONO % 10.7 % (3.8-10.2); NEUT % 54.8 % (42.8-82.8); PLATELET COUNT 283 10^3/uL (134-434); RBC 4.05 M/mm3 (4.00-5.60); RDW 16.7 % (11.9-15.9)
[2022-11-08 08:37] LABS: POTASSIUM 4.3 mmol/L (3.5-5.1)
[2022-11-08 08:43] LABS: ALBUMIN 2.8 g/dl (3.4-5.0); BLOOD UREA NITROGEN 11.2 mg/dL (7-18); MAGNESIUM 1.7 mg/dL (1.8-2.4)
[2022-11-08 08:44] LABS: CALCIUM 8.9 mg/dL (8.5-10.1)
[2022-11-08 08:46] LABS: CREATININE 0.9 mg/dL (0.55-1.3)
[2022-11-08 08:47] LABS: BILIRUBIN,TOTAL 0.8 mg/dL (0.2-1); TOT PROT 6.6 g/dl (6.4-8.2)
[2022-11-08] MEDS: DOCUSATE SODIUM 100 MG CAPSULE (FP) PO SCH ×2 (09:43→21:53)
[2022-11-08] MEDS: TAMSULOSIN HCL 0.4 MG CAP PO SCH (09:43)
[2022-11-08] MEDS ORDERED: TAMSULOSIN HCL 0.4 MG CAP PO ONE (11:30)
[2022-11-08] MEDS: INSULIN (NOVOLOG) ASPART 100 UNITS/ML 10ML VIAL SQ SCH (16:46)
[2022-11-08] MEDS: SODIUM CHLORIDE 1,000 ML IV SCH (18:07)
[2022-11-08] MEDS: INSULIN (LEVEMIR) 100 UNITS/ML UNITS SQ SCH (21:53)
[2022-11-08] MEDS: ATORVASTATIN CA 20 MG TABLET (FP) PO SCH (21:53)
[2022-11-09] MEDS: PIPERACILLIN/TAZOB 3.375 GM 3.375 GM in DEXTROSE 5%-WATER - 50 ML IVPB SCH ×2 (01:38→10:27)
[2022-11-09] MEDS: HEPARIN NA (PORCINE) 5,000 UNITS/ML 1ML VIAL SQ SCH ×2 (05:59→14:34)
[2022-11-09] MEDS: INSULIN (NOVOLOG) ASPART 100 UNITS/ML 10ML VIAL SQ SCH ×2 (06:06→11:46)
[2022-11-09] MEDS: INSULIN SLIDING SCALE (NOVOLOG) 1 VIAL SQ SCH ×2 (06:06→11:47)
[2022-11-09 07:28] LABS: BASO % 0.4 % (0-2.0); EOS % 1.5 % (0-4.5); HEMATOCRIT 32.8 % (35.4-49); HEMOGLOBIN 10.2 GM/dL (11.7-16.9); MCH 26.5 pg (25.7-33.7); MCHC 31.2 g/dl (32.0-35.9); MEAN CELL VOLUME 85.1 fl (80-96); MEAN PLT VOLUME 8.6 fl (7.5-11.1); MONO % 9.9 % (3.8-10.2); NEUT % 59.2 % (42.8-82.8); PLATELET COUNT 282 10^3/uL (134-434); RBC 3.86 M/mm3 (4.00-5.60); RDW 16.1 % (11.9-15.9); WHITE BLOOD COUNT 4.5 K/mm3 (4.0-10.0)
[2022-11-09 07:44] LABS: POTASSIUM 4.1 mmol/L (3.5-5.1)
[2022-11-09 07:47] LABS: ALBUMIN 2.8 g/dl (3.4-5.0)
[2022-11-09 07:49] LABS: BLOOD UREA NITROGEN 9.7 mg/dL (7-18); CALCIUM 8.5 mg/dL (8.5-10.1); MAGNESIUM 1.7 mg/dL (1.8-2.4)
[2022-11-09 07:51] LABS: CREATININE 0.9 mg/dL (0.55-1.3)
[2022-11-09 07:53] LABS: BILIRUBIN,TOTAL 0.7 mg/dL (0.2-1); TOT PROT 6.9 g/dl (6.4-8.2)
[2022-11-09] MEDS ORDERED: TAMSULOSIN HCL 0.4 MG CAP PO SCH (08:30)
[2022-11-09] MEDS: DOCUSATE SODIUM 100 MG CAPSULE (FP) PO SCH (10:26)
[2022-11-09] MEDS: INSULIN (LEVEMIR) 100 UNITS/ML UNITS SQ SCH (10:26)
[2022-11-09] MEDS ORDERED: INSULIN (NOVOLOG) ASPART 100 UNITS/ML 10ML VIAL ONE (11:41)
[2022-11-09 15:03] VITALS: BP 157/86; PULSE 85; RESP 18; TEMP 98.4
== END 2022-11-09 17:43 | disposition home or self-care (01) | DRG 871 ==
LOC: JER 20:13 → JERBED 20:47 → J4W 11-07 20:10
PROVIDERS: ADMIT Internal Medicine; ATTEND Internal Medicine
DX: A41.89 Other specified sepsis (principal); G93.41 Metabolic encephalopathy; N17.9 Acute kidney failure, unspecified; R64 Cachexia; N39.0 Urinary tract infection, site not specified; R55 Syncope and collapse; E11.65 Type 2 diabetes mellitus with hyperglycemia; D64.9 Anemia, unspecified; I10 Essential (primary) hypertension; Z68.25 Body mass index [BMI] 25.0-25.9, adult; R33.9 Retention of urine, unspecified; N40.0 Benign prostatic hyperplasia without lower urinary tract symptoms; R00.0 Tachycardia, unspecified; Z85.46 Personal history of malignant neoplasm of prostate
CPT/HCPCS: 0241U-QW; 36415; 70450-TC; 71045-TC-FY; 72125-TC; 76775-TC; 76856-TC; 80053; 80061; 81003; 82550; 82962; 83036; 83735; 83880; 84100; 84132; 84443; 84484; 85025; 85610; 85730; 86850; 86900; 86901; 87040; 87086; 87186; 93005; 93010; 97116-GP; 97162-GP; 99285-25; J1644